=== PATIENT | female | born 2000 | race Caucasian/White ===

== ENCOUNTER 2025-02-14 16:30 | Emergency (ER) | payer BC, OTHER, SELFPAY ==
--- NOTE | ~2025-02-14 | US_ITS ---
LIMITED ABDOMINAL ULTRASOUND INDICATION:RUQ pain COMPARISON: None. FINDINGS: Liver: Visualized portions of the liver are normal. Common bile duct: Normal in size. Gallbladder: The gallbladder wall is normal in thickness. No stones or sludge were seen. IMPRESSION: No evidence for acute cholecystitis or cholelithiasis. No biliary ductal dilatation is noted. Reviewed, dictated and finalized at location S. [employer]
[2025-02-14 16:48] VITALS: BP 119/78; PULSE 124; RESP 18; TEMP 36.7; O2SAT 99
[2025-02-14 20:01] LABS: BEDSIDEPREGUCG Negative (Negative)
--- NOTE | 2025-02-14 20:43 | ED_ITS ---
HPI - Abdominal Pain General Chief Complaint: Abdominal Pain Stated Complaint: abd pain Time Seen by Provider: 02/14/25 19:57 History of Present Illness HPI narrative: 24-year-old female with no pertinent past medical history presenting with epigastric and right upper quadrant pain intermittent for last week associated with nausea and vomiting spikes. Denies any traumatic injuries. No urinary complaints. She has also had some intermittent diarrhea as well. No history of gallbladder disease or any family history of gallbladder disease. No fever chills. Has only tried some Tums and Tylenol for symptom control. Was otherwise in her normal state of health. States that she sometimes gets relief of her symptoms when she leans forward otherwise does not really have any provoking or alleviating factors otherwise. States that she has been vomiting even bland food today. Related Data Allergies Allergy/AdvReac Type Severity Reaction Status Date / Time No Known Allergies Allergy Verified 02/14/25 16:31 Review of Systems 2 Review of Systems: As reviewed above in HPI All systems reviewed & are unremarkable except as noted in HPI and below Exam 2 Narrative: GENERAL: [Well-appearing, well-nourished, and in no acute distress.] HEAD: [Normocephalic, atraumatic.] EYES: [PERRLA and EOMI.] ENT: Nares clear, no rhinorrhea or epistaxis. Mucous membranes moist. NECK: Supple. CHEST: [Clear to auscultation. No respiratory distress.] HEART: [Regular rate and rhythm]. No murmur heard. [Normal peripheral pulses.] ABDOMEN: soft and nondistended but tender to palpation in the epigastrium EXTREMITIES: Normal range of motion. [No edema.] SKIN: Warm, dry, no rash. NEURO: [No focal deficits]. Alert and oriented [x3.] PSYCH: [Normal mood and affect.] Course Vital Signs Vital signs: Vital Signs Temperature 36.7 C 02/14/25 16:48 Pulse Rate 124 H 02/14/25 16:48 Respiratory Rate 18 02/14/25 16:48 Blood Pressure 119/78 02/14/25 16:48 Pulse Oximetry 99 02/14/25 16:48 Oxygen Delivery Room Air 02/14/25 16:48 Temperature 37.9 C H 02/14/25 20:56 Pulse Rate 79 02/14/25 23:53 Respiratory Rate 18 02/14/25 23:53 Blood Pressure 111/83 02/14/25 23:53 Pulse Oximetry 98 02/14/25 23:53 Oxygen Delivery Room Air 02/14/25 20:56 [facility] Narrative Medical decision making narrative: 24-year-old female with no pertinent past medical history presenting with epigastric and right upper quadrant pain intermittent for last week associated with nausea and vomiting spikes. Denies any traumatic injuries. No urinary complaints. She has also had some intermittent diarrhea as well. No history of gallbladder disease or any family history of gallbladder disease. No fever chills. Has only tried some Tums and Tylenol for symptom control. Was otherwise in her normal state of health. States that she sometimes gets relief of her symptoms when she leans forward otherwise does not really have any provoking or alleviating factors otherwise. States that she has been vomiting even bland food today. patient has a reassuring physical examination. Mildly tachycardic but this resolved with some fluids. Borderline febrile. Suspect gastritis, gastroenteritis, pancreatitis, cholecystitis, gallbladder colic, renal colic, viral syndrome. Laboratory studies and right upper quadrant ultrasound were obtained. She was given fluids and Zofran with improvement in symptoms. Laboratory studies are reassuring. No leukocytosis. No anemia. Laboratory studies showed no significant like tried derangements and normal kidney function normal LFTs. Urinalysis unremarkable. Negative test. Viral panel negative. Right upper quadrant ultrasound was unremarkable without any findings. Patient likely has viral gastroenteritis and will be sent home with Bentyl Zofran encouraged to hydrate until resolved. She was given return precautions and safe for discharge. Differential Diagnosis Differential Diagnosis: Suspect gastritis, gastroenteritis, pancreatitis, cholecystitis, gallbladder colic, renal colic, viral syndrome. Lab Data [facility] Lab Attestation statement: I personally reviewed the patient's lab results. 02/14/25 21:10 02/14/25 21:10 Labs: Lab Results 02/14/25 02/14/25 02/14/25 Range/Units 17:05 20:59 21:03 WBC (4.5-10.0) K/mm3 RBC (4.2-5.4) M/mm3 Hgb (12.0-15.0) g/dL Hct (37.0-47.0) % MCV (80-100) fl MCH (26-34) pg MCHC (32-36) g/dl RDW (11.5-14.5) % Plt Count (150-375) k/mm3 MPV (7.4-10.4) fl Immature Gran % (Auto) (0-0.5) % Neut % (Auto) (45.5-73.1) % Lymph % (Auto) (18.3-44.2) % Briscoe % (Auto) (2.6-8.5) % Eos % (Auto) (0-4.4) % Baso % (Auto) (0.2-1.2) % Lymph # (Auto) (0.9-3.2) K/mm3 Briscoe # (Auto) (0.1-0.6) K/mm3 Eos # (Auto) (0-0.3) K/mm3 Baso # (Auto) (0.0-0.1) K/mm3 Abs Immat Gran (auto) (0.00-0.031) K/mm3 Absolute Neuts (auto) (1.3-6.7) K/mm3 Absolute Nucleated RBC (0.0-0.012) K/mm3 Nucleated RBC % (0.0-0.2) % Sodium (137-145) mmol/L Potassium (3.4-5.0) mmol/L Chloride (98-107) mmol/L Carbon Dioxide (22-30) mmol/L Anion Gap (4-12) mmol/L BUN (7-17) mg/dL Creatinine (0.7-1.0) mg/dL Estim Creat Clear Calc ml/min Estimated GFR (59 - ) Glucose (65-110) mg/dL Calcium (8.4-10.2) mg/dL Total Bilirubin (0.2-1.3) mg/dL AST (14-36) U/L ALT (6-35) U/L Alkaline Phosphatase (38-126) U/L Total Protein (6.3-8.2) g/dL Albumin (3.5-5.1) g/dL Lipase (23-300) U/L Urine Color Yellow (Yellow) Urine Appearance Clear (Clear) Urine pH 7.0 (5.0-9.0) Ur Specific [place] 1.003 (1.001-1.035) Urine Protein Negative (Negative) mg/dL Urine Glucose (UA) Negative (Negative) mg/dL Urine Ketones Negative (Negative) mg/dL Ur Blood (Man) Negative (Negative) Urine Nitrate Negative (Negative) Urine Bilirubin Negative (Negative) Urine Urobilinogen 0.2 (<2.0) mg/dL Leukocyte Esterase Rfl Negative (Negative) SUNSHINE/UL POC Urine HCG, Qual Negative Negative (Negative) Influenza A (RT-PCR) (Negative) Influenza B (RT-PCR) (Negative) RSV (RT-PCR) (Negative) SARS-CoV-2 RNA (RT-PCR) (Negative) 02/14/25 02/14/25 Range/Units 21:10 21:45 WBC 7.0 (4.5-10.0) K/mm3 RBC 4.65 (4.2-5.4) M/mm3 Hgb 12.6 (12.0-15.0) g/dL Hct 39.4 (37.0-47.0) % MCV 84.7 (80-100) fl MCH 27.1 (26-34) pg MCHC 32.0 (32-36) g/dl RDW 13.2 (11.5-14.5) % Plt Count 245 (150-375) k/mm3 MPV 9.5 (7.4-10.4) fl Immature Gran % (Auto) 0.7 H (0-0.5) % Neut % (Auto) 72.6 (45.5-73.1) % Lymph % (Auto) 18.9 (18.3-44.2) % Briscoe % (Auto) 7.4 (2.6-8.5) % Eos % (Auto) 0.1 (0-4.4) % Baso % (Auto) 0.3 (0.2-1.2) % Lymph # (Auto) 1.33 (0.9-3.2) K/mm3 Briscoe # (Auto) 0.5 (0.1-0.6) K/mm3 Eos # (Auto) 0.0 (0-0.3) K/mm3 Baso # (Auto) 0.0 (0.0-0.1) K/mm3 Abs Immat Gran (auto) 0.05 H (0.00-0.031) K/mm3 Absolute Neuts (auto) 5.1 (1.3-6.7) K/mm3 Absolute Nucleated RBC 0.000 (0.0-0.012) K/mm3 Nucleated RBC % 0.0 (0.0-0.2) % Sodium 134 L (137-145) mmol/L Potassium 3.3 L (3.4-5.0) mmol/L Chloride 100 (98-107) mmol/L Carbon Dioxide 24 (22-30) mmol/L Anion Gap 10 (4-12) mmol/L BUN 8 (7-17) mg/dL Creatinine 0.74 (0.7-1.0) mg/dL Estim Creat Clear Calc 95 ml/min Estimated GFR > 60 (59 - ) Glucose 90 (65-110) mg/dL Calcium 9.0 (8.4-10.2) mg/dL Total Bilirubin 0.8 (0.2-1.3) mg/dL AST 26 (14-36) U/L ALT 15 (6-35) U/L Alkaline Phosphatase 100 (38-126) U/L Total Protein 7.7 (6.3-8.2) g/dL Albumin 4.2 (3.5-5.1) g/dL Lipase 53 (23-300) U/L Urine Color (Yellow) Urine Appearance (Clear) Urine pH (5.0-9.0) Ur Specific [place] (1.001-1.035) Urine Protein (Negative) mg/dL Urine Glucose (UA) (Negative) mg/dL Urine Ketones (Negative) mg/dL Ur Blood (Man) (Negative) Urine Nitrate (Negative) Urine Bilirubin (Negative) Urine Urobilinogen (<2.0) mg/dL Leukocyte Esterase Rfl (Negative) SUNSHINE/UL POC Urine HCG, Qual (Negative) Influenza A (RT-PCR) Negative (Negative) Influenza B (RT-PCR) Negative (Negative) RSV (RT-PCR) Negative (Negative) SARS-CoV-2 RNA (RT-PCR) Negative (Negative) Imaging Data Radiologist's impression: ITS Impressions Abdomen Ultrasound 02/14/25 21:07 IMPRESSION: No evidence for acute cholecystitis or cholelithiasis. No biliary ductal dilatation is noted. Discharge Plan Discharge Clinical Impression: Viral gastroenteritis Patient Disposition: Home Condition: Stable Instructions: Antibiotic Form, Gastroenteritis (DC), Abdominal Pain (ED) Additional Instructions: All of your workup is reassuring today. Your ultrasound shows no evidence of gallbladder pathology such as any stones, sludge, cholecystitis or any bile duct issues. Your laboratory studies showed normal kidney and liver function and normal pancreas function. Normal white count without any signs of inflammation Or any other concerning lab findings. No urinary findings. Symptoms consistent with viral gastroenteritis. Negative for COVID and flu. We will send you home with medications for symptom control until fully resolved to help with abdominal cramping and spasms as well as nausea. Take these medications as prescribed in addition to Tylenol and ibuprofen for any fevers or pain. Return with any emergent concerns otherwise follow-up with regular primary care provider. Patient Language: Iraqi Prescriptions: New famotidine [Pepcid] 20 mg tablet 20 mg PO BID Qty: 20 0RF dicyclomine 20 mg tablet 20 mg PO TID PRN (Reason: abdominal pain) Qty: 20 0RF ibuprofen 600 mg tablet 600 mg PO TID PRN (Reason: pain) Qty: 20 0RF ondansetron 4 mg tablet,disintegrating 4 mg PO Q8H PRN (Reason: nausea and vomiting) Qty: 20 0RF Follow-up/Referrals: Rose Jovel APRN [Primary Care Provider, [facility]] Time of Disposition: 22:53
[2025-02-14 20:56] VITALS: BP 108/72; PULSE 100; PULSE 95; RESP 16; RESP 18; TEMP 37.9; O2SAT 98; O2SAT 99
[2025-02-14 21:05] LABS: BEDSIDEPREGUCG Negative (Negative)
[2025-02-14 21:08] LABS: Add Urine Microscopic? NO; Appearance Urine Clear (Clear); Glucose Urine UA Negative (Negative); Leukocyte Esterase Ur Negative LEU/UL (Negative); Nitrate Urine Negative (Negative); Specific Grav Ur 1.003 (1.001-1.035)
[2025-02-14] MEDS: ONDANSETRON INJ 4 MG/2 ML VIAL IV PUSH (21:12)
[2025-02-14] MEDS: LACTATED RINGERS 1,000 ML 999 ML IV CONT (21:12)
[2025-02-14 21:24] LABS: Hematocrit 39.4 % (37.0-47.0); Hemoglobin 12.6 g/dL (12.0-15.0); Immature Granulocyte Percent A 0.7 % (0-0.5); Lymphocytes Absolute Auto 1.33 K/mm3 (0.9-3.2); Mean Corpuscular HGB Conc 32.0 g/dl (32-36); Mean Corpuscular Hemoglobin 27.1 pg (26-34); Mean Corpuscular Volume 84.7 fl (80-100); Nucleated Red Blood Cells Absolute Auto 0.000 K/mm3 (0.0-0.012); Nucleated Red Blood Cells Perc 0.0 % (0.0-0.2); Platelet Count Result 245 k/mm3 (150-375); Red Blood Count 4.65 M/mm3 (4.2-5.4); White Blood Count 7.0 K/mm3 (4.5-10.0)
[2025-02-14 21:34] LABS: Alanine Aminotransferase 15 U/L (6-35); Albumin Level 4.2 g/dL (3.5-5.1); Alkaline Phosphatase 100 U/L (38-126); Anion Gap 10 mmol/L (4-12); Aspartate Amino Transferase 26 U/L (14-36); Bilirubin,Total 0.8 mg/dL (0.2-1.3); Blood Urea Nitrogen 8 mg/dL (7-17); Calcium 9.0 mg/dL (8.4-10.2); Carbon Dioxide 24 mmol/L (22-30); Chloride 100 mmol/L (98-107); Estimated CRCL calculation 95 ml/min; Estimated Glomerular Filt Rate > 60; Glucose 90 mg/dL (65-110); Lipase 53 U/L (23-300); Potassium 3.3 mmol/L (3.4-5.0); Sodium 134 mmol/L (137-145); Total Protein 7.7 g/dL (6.3-8.2)
[2025-02-14 22:26] LABS: Influenza A QL RT-PCR Negative (Negative); Influenza B QL RT-PCR Negative (Negative); RSV RNA, RT-PCR Negative (Negative); SARS-CoV-2 RNA PCR Negative (Negative)
[2025-02-14] MEDS: DICYCLOMINE HCL 10 MG CAPSULE 20 MG PO (23:36)
[2025-02-14] MEDS: KETOROLAC 15 MG/ML VIAL (*BKC) IV PUSH (23:37)
[2025-02-14 23:53] VITALS: BP 111/83; PULSE 79; RESP 18; O2SAT 98
== END 2025-02-14 23:56 | disposition home or self-care (01) ==
LOC: ANHED 22:56
PROVIDERS: Emergency Provider Student in an Organized Health Care Education/Training Program; PCP Nurse Practitioner Family
DX: A08.4 Viral intestinal infection, unspecified (principal); Z20.822 Contact with and (suspected) exposure to COVID-19
CPT/HCPCS: 36415; 76705; 80053; 81003; 81025; 83690; 85025; 87637; 96361; 96374; 96375; 99284; A9270; J1885; J2405; J7120